=== PATIENT | female | born 1990 | race Caucasian/White ===

== ENCOUNTER 2020-08-10 16:18 | Emergency (ER) | payer OTHER ==
[~2020-08-10 16:18] MED LIST: OMNICEF 300 MG300 MG PO; PERCOCET 5/325 T1 EA PO; PYRIDIUM200 MG PO; ZOFRAN ODT 4 MG4 MG SL
[2020-08-10] MEDS ORDERED: ZOFRAN ODT 4 MG4 MG PO (18:58)
[2020-08-10] MEDS ORDERED: AUGMENTIN 875-1 EACH PO (18:58)
== END 2020-08-10 19:48 | disposition home or self-care (01) ==
LOC: ER1 16:18
DX: N39.0 Urinary tract infection, site not specified (principal); M06.9 Rheumatoid arthritis, unspecified; F17.210 Nicotine dependence, cigarettes, uncomplicated; Z88.6 Allergy status to analgesic agent; Z88.1 Allergy status to other antibiotic agents; Z88.8 Allergy status to other drugs, medicaments and biological substances
CPT/HCPCS: 81001; 84703; 87077; 87086; 87186; 96374; 96375; 99284; J1885

== ENCOUNTER 2021-01-29 01:07 | Emergency (ER) | payer OTHER ==
[~2021-01-29 01:07] MED LIST changes: +AUGMENTIN 875-1 EACH PO; +ZOFRAN ODT 4 MG4 MG PO
[2021-01-29] MEDS ORDERED: LODINE CAP 300300 MG PO (01:23)
[2021-01-29] MEDS ORDERED: CLINDAMYCIN HC150 MG PO (01:23)
== END 2021-01-29 02:35 | disposition home or self-care (01) ==
LOC: ER1 01:07
DX: K02.9 Dental caries, unspecified (principal); F17.200 Nicotine dependence, unspecified, uncomplicated; Z90.89 Acquired absence of other organs; Z88.0 Allergy status to penicillin; Z88.1 Allergy status to other antibiotic agents
CPT/HCPCS: 99282